=== PATIENT | female | born 1975 | race Caucasian/White ===

== ENCOUNTER 2017-07-17 10:11 | Outpatient (CLI) | payer OTHER | END 2017-07-17 10:12 | disposition home or self-care (01) | LOC: BICMAMMO 10:11 | PROVIDERS: ATTEND Student in an Organized Health Care Education/Training Program | DX: N63.10 Unspecified lump in the right breast, unspecified quadrant (principal); N63.20 Unspecified lump in the left breast, unspecified quadrant | CPT/HCPCS: 77066; G0279 ==

== ENCOUNTER 2021-01-24 10:34 | Outpatient (CLI) | payer OTHER | END 2021-01-24 10:35 | disposition home or self-care (01) | LOC: TBSIIMAG 10:34 | PROVIDERS: ATTEND Surgery | DX: M47.22 Other spondylosis with radiculopathy, cervical region (principal); R20.2 Paresthesia of skin | CPT/HCPCS: 72050; 72141 ==

== ENCOUNTER 2023-02-22 13:33 | Outpatient (CLI) | payer OTHER | END 2023-02-22 13:34 | disposition home or self-care (01) | LOC: BICULT 13:33 | PROVIDERS: ATTEND Obstetrics & Gynecology | DX: N60.12 Diffuse cystic mastopathy of left breast (principal) ==